=== PATIENT | female | born 1945 | race Caucasian/White ===

== ENCOUNTER 2018-03-29 14:15 | Inpatient (IN) | payer MEDICARE ==
[~2018-03-29] VITALS: Ht 162.6 cm; Wt 90.0 kg
[~2018-03-29 14:15] MED LIST: CARB1TAB21 PO; CELE-193 PO; ERGO500014 PO; GABA-534 PO; LISI-222 PO; MULT-1085 PO; NORCO10T PO; SIMV20TA5 PO; SYN0.025T PO; [UNRECOGNIZED DRUG - CODE] PO
[2018-03-29] MEDS ORDERED: aspirin 81mg tab.chew PO ONE (14:25)
[2018-03-29] MEDS ORDERED: nitroGLYCERIN 0.4mg SUBLingual tab SL PRN (14:25)
[2018-03-29 14:49] LABS: BASOPHILS # (AUTO) 0.1 X10'3 (0-0.2); BASOPHILS % (AUTO) 1.7 % (0-1); EOSINOPHILS # (AUTO) 0.4 X10'3 (0-0.9); EOSINOPHILS % (AUTO) 7.8 % (0-6); HEMATOCRIT 36.3 % (35.0-45.0); HEMOGLOBIN 12.2 g/dl (12.0-16.0); LYMPHOCYTES # (AUTO) 1.7 X10'3 (1.1-4.8); LYMPHOCYTES % (AUTO) 33.8 % (21-51); MEAN CORPUSCULAR HGB CONC 33.6 % (33.0-36.5); MEAN CORPUSCULAR VOLUME 89.1 FL (78-98); MEAN PLATELET VOLUME 7.6 FL (7.4-10.4); MONOCYTES # (AUTO) 0.8 X10'3 (0-0.9); MONOCYTES % (AUTO) 14.8 % (2-12); NEUTROPHILS # (AUTO) 2.1 X10'3 (1.8-7.7); NEUTROPHILS % (AUTO) 41.9 % (42-75); PLATELET COUNT 193 X10'3 (140-440); RED BLOOD COUNT 4.07 X10'6 (4.20-5.60); RED CELL DISTRIBUTION WIDTH 13.1 % (11.5-14.5); WHITE BLOOD COUNT 5.1 X10'3 (4.5-11.0)
[2018-03-29 14:53] LABS: PARTIAL THROMBOPLASTIN TIME 26 SECONDS (22-32)
[2018-03-29 15:00] LABS: ALANINE AMINOTRANSFERASE 11 U/L (12-78); ALBUMIN 3.5 G/DL (3.4-5.0); ALKALINE PHOSPHATASE 74 IU/L (46-116); ANION GAP 7 (8-16); ASPARTATE AMINO TRANSFERASE 20 U/L (10-37); BILIRUBIN,TOTAL 0.3 MG/DL (0.1-1.0); BLOOD UREA NITROGEN 35 MG/DL (7-18); BUN/CREATININE RATIO 23.8 (6.6-38.0); CALCIUM 8.8 MG/DL (8.5-10.1); CHLORIDE 104 MMOL/L (99-107); CREATININE 1.47 MG/DL (0.40-0.90); GLUCOSE 98 MG/DL (70-104); POTASSIUM 4.5 MMOL/L (3.5-5.1); SODIUM 135 MMOL/L (135-145); TOTAL CARBON DIOXIDE 23.7 MMOL/L (24-32); TOTAL PROTEIN 6.9 G/DL (6.4-8.2); eGFR 35 ML/MIN
[2018-03-29] MEDS ORDERED: heparin 10,000 units/1 ML INJ IV PRN (15:10)
[2018-03-29] MEDS ORDERED: heparin 10,000 units/1 ML INJ IV ONE (15:10)
[2018-03-29] MEDS ORDERED: ROPI0.252 PO (15:46)
[2018-03-29] MEDS ORDERED: nitroGLYCERIN 0.4mg/hour patch TD ONE (16:40)
[2018-03-29] MEDS ORDERED: acetaminophen 325mg tablet PO PRN (16:40)
[2018-03-29] MEDS ORDERED: mag hydrox/Alum hydrox/simeth 30ml oral suspension PO PRN (16:40)
[2018-03-29] MEDS ORDERED: magnesium hydroxide 30ml (MOM) UD suspension PO PRN (16:40)
[2018-03-29] MEDS ORDERED: ondansetron/PF 4mg/2ml inj IV PRN (16:40)
[2018-03-29] MEDS ORDERED: morphine 4 MG/ML inj SYRINge IV PRN (16:40)
[2018-03-29] MEDS: normal saline 1000ml 1,000 ML IV SCH (16:49)
[2018-03-29 17:20] VITALS: BP 162/64
[2018-03-29 17:58] LABS: HEMOGLOBIN A1C 6.3 % (4.5-6.2)
[2018-03-29] MEDS ORDERED: glucagon, human recombinant 1mg kit SUBCUT PRN (18:30)
[2018-03-29] MEDS ORDERED: dextrose ORAL solution 15 GM/59 ML bottle PO PRN ×2 (18:30)
[2018-03-29] MEDS ORDERED: insulin regular, human vial - multi-dose SQ SCH (18:30)
[2018-03-29] MEDS ORDERED: dextrose 50%-water 50ml dispensing syringe IV PRN ×2 (18:30)
[2018-03-29] MEDS ORDERED: MESSAGE TO PHARMACY PO ONE (18:30)
[2018-03-29] MEDS ORDERED: insulin Lispro (HumaLOG) vial - multi-dose SQ SCH (18:30)
[2018-03-29 19:00] VITALS: BP 120/75
[2018-03-29] MEDS: tirofiban 5mg in NS 100mL 100 ML IV SCH (19:04)
[2018-03-29] MEDS: ROPINIRole 0.25mg tablet PO SCH (20:25)
[2018-03-29] MEDS: carbidopa/levodopa 10/100mg tab PO SCH (20:25)
[2018-03-29] MEDS: insulin glargine (Lantus) pen - multi-dose SQ SCH (20:56)
[2018-03-29] MEDS ORDERED: ROPINIRole 0.25mg tablet PO SCH (21:00)
[2018-03-29 23:00] VITALS: BP 128/58
[2018-03-30] VITALS (14 sets, daily range): BP systolic 108–153; BP diastolic 40–66
[2018-03-30] MEDS: normal saline 1000ml 1,000 ML IV SCH ×3 (02:19→21:25)
[2018-03-30] MEDS: morphine 4 MG/ML inj SYRINge IV PRN ×2 (02:20→10:48)
[2018-03-30] MEDS: tirofiban 5mg in NS 100mL 100 ML IV SCH (02:20)
[2018-03-30 05:26] LABS: BASOPHILS % (AUTO) 0.5 % (0-1); EOSINOPHILS # (AUTO) 0.4 X10'3 (0-0.9); EOSINOPHILS % (AUTO) 8.4 % (0-6); HEMATOCRIT 33.1 % (35.0-45.0); HEMOGLOBIN 11.1 g/dl (12.0-16.0); LYMPHOCYTES # (AUTO) 1.6 X10'3 (1.1-4.8); LYMPHOCYTES % (AUTO) 31.6 % (21-51); MEAN CORPUSCULAR HEMOGLOBIN 30.3 PG (27.0-31.0); MEAN CORPUSCULAR HGB CONC 33.6 % (33.0-36.5); MEAN CORPUSCULAR VOLUME 90.1 FL (78-98); MEAN PLATELET VOLUME 8.1 FL (7.4-10.4); MONOCYTES # (AUTO) 0.6 X10'3 (0-0.9); MONOCYTES % (AUTO) 12.1 % (2-12); NEUTROPHILS # (AUTO) 2.6 X10'3 (1.8-7.7); NEUTROPHILS % (AUTO) 47.4 % (42-75); PLATELET COUNT 174 X10'3 (140-440); RED BLOOD COUNT 3.68 X10'6 (4.20-5.60); RED CELL DISTRIBUTION WIDTH 13.4 % (11.5-14.5); WHITE BLOOD COUNT 5.2 X10'3 (4.5-11.0)
[2018-03-30 05:48] LABS: ALBUMIN 3.1 G/DL (3.4-5.0); ANION GAP 10 (8-16); BLOOD UREA NITROGEN 26 MG/DL (7-18); BUN/CREATININE RATIO 22.2 (6.6-38.0); CALCIUM 8.5 MG/DL (8.5-10.1); CHLORIDE 107 MMOL/L (99-107); CREATININE 1.17 MG/DL (0.40-0.90); GLUCOSE 91 MG/DL (70-104); POTASSIUM 4.4 MMOL/L (3.5-5.1); SODIUM 139 MMOL/L (135-145); TOTAL CARBON DIOXIDE 22.3 MMOL/L (24-32); eGFR 45 ML/MIN
[2018-03-30] MEDS: atorvastatin 20mg tablet PO SCH (07:48)
[2018-03-30] MEDS: levoTHYROXINE 75mcg tablet PO SCH (07:48)
[2018-03-30] MEDS: aspirin 81mg tablet.DR PO SCH (07:49)
[2018-03-30] MEDS: lisinopril 20mg tablet PO SCH (07:49)
[2018-03-30] MEDS: gabapentin 400mg capsule PO SCH (07:49)
[2018-03-30] MEDS: carbidopa/levodopa 10/100mg tab PO SCH ×4 (07:49→21:23)
[2018-03-30] MEDS: ROPINIRole 0.25mg tablet PO SCH ×3 (07:49→21:23)
[2018-03-30] MEDS ORDERED: midazolam 2 mg/2 ml injection ONE (07:56)
[2018-03-30] MEDS ORDERED: iohexol 350MG/ML 100ml bottle IV ONE (07:56)
[2018-03-30] MEDS ORDERED: lidocaine 1%/epinephrine 1:100,000 injection 50ml vial ONE (07:56)
[2018-03-30] MEDS ORDERED: fentaNYL/PF 50MCG/1 ML 2ML syringe ONE (07:56)
[2018-03-30] MEDS: ETHINYL ESTRADIOL PO SCH (08:00)
[2018-03-30] MEDS: [UNRECOGNIZED DRUG - OTHER] PO SCH (08:00)
[2018-03-30 08:38] LABS: CHOL/HDL RATIO 4.7 (0.00-4.99); CHOLESTEROL 150 MG/DL (0-200); HDL CHOLESTEROL 32 MG/DL (35-60); LDL CHOLESTEROL 98 MG/DL (50-100); TRIGLYCERIDES 110 MG/DL (20-135)
[2018-03-30] MEDS ORDERED: proCHLORperazine 10 MG/2 ml inj IV PRN (10:25)
[2018-03-30] MEDS ORDERED: OXAZEpam 15mg capsule PO PRN (10:25)
[2018-03-30] MEDS: insulin glargine (Lantus) pen - multi-dose SQ SCH (21:00)
[2018-03-31 03:00] VITALS: BP 135/54
[2018-03-31 06:00] VITALS: BP 131/59
[2018-03-31] MEDS: aspirin 81mg tablet.DR PO SCH (07:11)
[2018-03-31] MEDS: carbidopa/levodopa 10/100mg tab PO SCH ×2 (07:11→12:50)
[2018-03-31] MEDS: atorvastatin 20mg tablet PO SCH (07:11)
[2018-03-31] MEDS: ROPINIRole 0.25mg tablet PO SCH ×2 (07:11→12:50)
[2018-03-31] MEDS: lisinopril 20mg tablet PO SCH (07:11)
[2018-03-31] MEDS: gabapentin 400mg capsule PO SCH (07:11)
[2018-03-31] MEDS: levoTHYROXINE 75mcg tablet PO SCH (07:11)
[2018-03-31 07:13] LABS: BASOPHILS % (AUTO) 0.7 % (0-1); EOSINOPHILS # (AUTO) 0.3 X10'3 (0-0.9); EOSINOPHILS % (AUTO) 4.7 % (0-6); HEMATOCRIT 31.7 % (35.0-45.0); HEMOGLOBIN 10.7 g/dl (12.0-16.0); LYMPHOCYTES # (AUTO) 1.2 X10'3 (1.1-4.8); LYMPHOCYTES % (AUTO) 19.6 % (21-51); MEAN CORPUSCULAR HEMOGLOBIN 30.2 PG (27.0-31.0); MEAN CORPUSCULAR HGB CONC 33.8 % (33.0-36.5); MEAN CORPUSCULAR VOLUME 89.2 FL (78-98); MEAN PLATELET VOLUME 8.6 FL (7.4-10.4); MONOCYTES # (AUTO) 0.6 X10'3 (0-0.9); MONOCYTES % (AUTO) 9.3 % (2-12); NEUTROPHILS # (AUTO) 4.2 X10'3 (1.8-7.7); NEUTROPHILS % (AUTO) 65.7 % (42-75); PLATELET COUNT 166 X10'3 (140-440); RED BLOOD COUNT 3.56 X10'6 (4.20-5.60); RED CELL DISTRIBUTION WIDTH 13.5 % (11.5-14.5); WHITE BLOOD COUNT 6.3 X10'3 (4.5-11.0)
[2018-03-31] MEDS: [UNRECOGNIZED DRUG - OTHER] PO SCH (07:13)
[2018-03-31] MEDS: ETHINYL ESTRADIOL PO SCH (07:13)
[2018-03-31 07:22] LABS: ALBUMIN 3.1 G/DL (3.4-5.0); ANION GAP 7 (8-16); BLOOD UREA NITROGEN 26 MG/DL (7-18); CALCIUM 8.5 MG/DL (8.5-10.1); CHLORIDE 106 MMOL/L (99-107); GLUCOSE 107 MG/DL (70-104); POTASSIUM 4.8 MMOL/L (3.5-5.1); SODIUM 136 MMOL/L (135-145); TOTAL CARBON DIOXIDE 23.1 MMOL/L (24-32); eGFR 40 ML/MIN
[2018-03-31] MEDS: normal saline 1000ml 1,000 ML IV SCH (08:36)
[2018-03-31 11:00] VITALS: BP 144/59
[2018-03-31] MEDS ORDERED: clopidogrel 75mg tablet PO SCH (11:30)
[2018-03-31 15:00] VITALS: BP 125/57
[2018-03-31] MEDS ORDERED: ASPI-1071 PO (15:37)
[2018-03-31] MEDS ORDERED: CLOP75TA35 PO (15:37)
== END 2018-03-31 17:15 | disposition home or self-care (01) | DRG 280 ==
LOC: ER 14:16 → ED HOLD 16:36 → PCU 3S 17:30
PROVIDERS: ADMIT Family Medicine; ATTEND Family Medicine
PROC: 4A023N7 Measurement of Cardiac Sampling and Pressure, Left Heart, Percutaneous Approach (ICD-10-PCS; principal; 2018-03-30)
PROC: B2111ZZ Fluoroscopy of Multiple Coronary Arteries using Low Osmolar Contrast (ICD-10-PCS; 2018-03-30)
PROC: B2151ZZ Fluoroscopy of Left Heart using Low Osmolar Contrast (ICD-10-PCS; 2018-03-30)
PROC: B2131ZZ Fluoroscopy of Multiple Coronary Artery Bypass Grafts using Low Osmolar Contrast (ICD-10-PCS; 2018-03-30)
PROC: CB121ZZ Planar Nuclear Medicine Imaging of Lungs and Bronchi using Technetium 99m (Tc-99m) (ICD-10-PCS; 2018-03-31)
DX: I21.4 Non-ST elevation (NSTEMI) myocardial infarction (principal); N17.0 Acute kidney failure with tubular necrosis; G25.81 Restless legs syndrome; I25.10 Atherosclerotic heart disease of native coronary artery without angina pectoris; I44.7 Left bundle-branch block, unspecified; N18.9 Chronic kidney disease, unspecified; G20 Parkinson's disease; F41.9 Anxiety disorder, unspecified; R00.1 Bradycardia, unspecified; E78.5 Hyperlipidemia, unspecified; I12.9 Hypertensive chronic kidney disease with stage 1 through stage 4 chronic kidney disease, or unspecified chronic kidney disease; E03.9 Hypothyroidism, unspecified; E11.22 Type 2 diabetes mellitus with diabetic chronic kidney disease; E11.42 Type 2 diabetes mellitus with diabetic polyneuropathy; E78.00 Pure hypercholesterolemia, unspecified; Z95.1 Presence of aortocoronary bypass graft; Z98.84 Bariatric surgery status; Z90.49 Acquired absence of other specified parts of digestive tract; Z79.02 Long term (current) use of antithrombotics/antiplatelets; Z79.82 Long term (current) use of aspirin; Z79.899 Other long term (current) drug therapy; Z82.49 Family history of ischemic heart disease and other diseases of the circulatory system; Z83.3 Family history of diabetes mellitus
CPT/HCPCS: 36415; 71045; 78582; 80048; 80053; 80061; 82948; 83036; 84484; 85025; 85610; 85730; 87070; 93005; 93306; 93459; 96374; 99152; 99291; A4315; A6257; A9539; A9540; C1769; J1644; J1815; J2250; J2270; J2405; J3010; J3246; J3490; J7030; Q9967

== ENCOUNTER 2019-11-04 23:17 | Emergency (ER) | payer MEDICARE ==
[~2019-11-04] VITALS: Ht 162.6 cm; Wt 93.1 kg
[~2019-11-04 23:17] MED LIST changes: +ASPI-1071 PO; -CELE-193 PO; +CLOP75TA35 PO; -ERGO500014 PO; -MULT-1085 PO; -NORCO10T PO; +ROPI0.252 PO; +SIMV-42 PO; -SIMV20TA5 PO
[2019-11-04] MEDS ORDERED: LOSA25TA41 PO (23:50)
--- NOTE | 2019-11-04 23:50 | NUR ---
DR. REYES AT [facility] Addendum: 11/04/19 at [address] REYES AT BEDSIDE ASSESSING PATIENT
[2019-11-05 00:18] VITALS: BP 158/79
== END 2019-11-05 00:20 | disposition home or self-care (01) ==
LOC: ER 23:18
DX: I10 Essential (primary) hypertension (principal); R42 Dizziness and giddiness; G20 Parkinson's disease; I25.10 Atherosclerotic heart disease of native coronary artery without angina pectoris; E78.00 Pure hypercholesterolemia, unspecified; Z95.1 Presence of aortocoronary bypass graft; Z76.0 Encounter for issue of repeat prescription; Z79.82 Long term (current) use of aspirin; Z79.899 Other long term (current) drug therapy
CPT/HCPCS: 99281

== ENCOUNTER 2020-03-01 17:38 | Inpatient (IN) | payer MEDICARE ==
[~2020-03-01] VITALS: Ht 162.6 cm; Wt 201.0 kg
[~2020-03-01 17:38] MED LIST changes: +LOSA25TA41 PO
[2020-03-01 18:20] LABS: BASOPHILS % (AUTO) 0.5 % (0-1); EOSINOPHILS # (AUTO) 0.2 X10'3 (0-0.9); EOSINOPHILS % (AUTO) 3.8 % (0-6); HEMATOCRIT 36.5 % (35.0-45.0); HEMOGLOBIN 11.9 g/dl (12.0-16.0); LYMPHOCYTES # (AUTO) 1.2 X10'3 (1.1-4.8); LYMPHOCYTES % (AUTO) 18.2 % (21-51); MEAN CORPUSCULAR HEMOGLOBIN 28.1 PG (27.0-31.0); MEAN CORPUSCULAR HGB CONC 32.4 g/dL (33.0-36.5); MEAN CORPUSCULAR VOLUME 86.7 FL (78-98); MEAN PLATELET VOLUME 7.5 FL (7.4-10.4); MONOCYTES # (AUTO) 0.8 X10'3 (0-0.9); NEUTROPHILS # (AUTO) 4.1 X10'3 (1.8-7.7); NEUTROPHILS % (AUTO) 64.5 % (42-75); PLATELET COUNT 219 X10'3 (140-440); RED BLOOD COUNT 4.22 X10'6 (4.20-5.60); RED CELL DISTRIBUTION WIDTH 16.6 % (11.5-14.5); WHITE BLOOD COUNT 6.4 X10'3 (4.5-11.0)
[2020-03-01 18:35] LABS: PARTIAL THROMBOPLASTIN TIME 28 SECONDS (22-32)
[2020-03-01 18:37] LABS: ALANINE AMINOTRANSFERASE 9 U/L (12-78); ALBUMIN 3.6 G/DL (3.4-5.0); ALKALINE PHOSPHATASE 117 IU/L (46-116); ANION GAP 8 (8-16); ASPARTATE AMINO TRANSFERASE 15 U/L (10-37); BILIRUBIN,TOTAL 0.3 MG/DL (0.1-1.0); BLOOD UREA NITROGEN 36 MG/DL (7-18); BUN/CREATININE RATIO 29.8 (6.6-38.0); CALCIUM 9.4 MG/DL (8.5-10.1); CHLORIDE 104 MMOL/L (99-107); CREATININE 1.21 MG/DL (0.40-0.90); GLUCOSE 89 MG/DL (70-104); POTASSIUM 4.6 MMOL/L (3.5-5.1); SODIUM 137 MMOL/L (135-145); TOTAL CARBON DIOXIDE 24.7 MMOL/L (24-32); TOTAL PROTEIN 7.3 G/DL (6.4-8.2); eGFR 43 ML/MIN
[2020-03-01 18:40] LABS: TROPONIN I < 0.04 NG/ML (0.0-0.05)
[2020-03-01] MEDS ORDERED: aspirin 81mg tab.chew PO ONE (18:50)
[2020-03-01] MEDS ORDERED: iohexol 350MG/ML 100ml bottle IV ONE (19:02)
[2020-03-01] MEDS ORDERED: ROPI0.5T4 PO (19:52)
[2020-03-01] MEDS ORDERED: ASPI-1053 PO (19:52)
[2020-03-01] MEDS ORDERED: ROTI1PAT10 TOP (19:52)
[2020-03-01] MEDS ORDERED: LOSA25TA41 PO (19:52)
[2020-03-01] MEDS ORDERED: PARO30TA73 PO (19:52)
[2020-03-01] MEDS ORDERED: GABA600T13 PO (19:52)
[2020-03-01] MEDS ORDERED: CLOP75TA33 PO (19:52)
[2020-03-01] MEDS ORDERED: DICL100G15 TOP (19:52)
[2020-03-01] MEDS ORDERED: LEVO100T9 PO (19:52)
[2020-03-01] MEDS ORDERED: CARB1TAB24 PO (19:52)
[2020-03-01] MEDS ORDERED: [UNRECOGNIZED DRUG - CODE] PO (19:52)
[2020-03-01] MEDS ORDERED: potassium CL 10mEq/100ml bag 100 ML IV PRN ×2 (20:00)
[2020-03-01] MEDS ORDERED: magnesium Cl slow-release 64mg tablet PO PRN (20:00)
[2020-03-01] MEDS ORDERED: potassium Cl 20 mEq SR tablet PO PRN ×2 (20:00)
[2020-03-01] MEDS: K and/or MAG REPLACEMENT MC SCH (20:00)
[2020-03-01] MEDS ORDERED: magnesium 2GM in 50ml NS 50 ML IV PRN (20:00)
[2020-03-01] MEDS ORDERED: ondansetron/PF 4mg/2ml inj IV PRN (20:00)
[2020-03-01] MEDS ORDERED: magnesium 4gm in 100ml NS 100 ML IV PRN (20:00)
--- NOTE | 2020-03-01 21:21 | NUR ---
Kevan Liao, Patient's son,
--- NOTE | 2020-03-01 21:25 | NUR ---
Patient in room ED 6. I have received report from Elsie MCKEON and had the opportunity to ask questions and assume patient care.
--- NOTE | 2020-03-01 21:30 | NUR ---
pt to the floor w/ Igor MCKEON
[2020-03-01 21:35] VITALS: BP 177/71
[2020-03-01] MEDS: docusate sod 100mg capsule PO SCH (21:49)
[2020-03-02] VITALS (7 sets, daily range): BP systolic 107–176; BP diastolic 45–76
--- NOTE | 2020-03-02 00:27 | NUR ---
promotional table spacer Page Sent promotional table spacer PAGER ID: [phone] MESSAGE: Pt in room 4021A, Yanni Kaleigh is requesting her night time meds of 1) Carbidopa/Levidopa 2) Gabapentin 3)Ropinirole HCL. Her tremors and restless leg are causing her to feel anxious
--- NOTE | 2020-03-02 00:28 | NUR ---
Spoke with son William who read RX of Carbidopa/Levidopa ER 20-200 tab HS
--- NOTE | 2020-03-02 06:16 | NUR ---
Problems reprioritized. Patient report given, questions answered & plan of care reviewed with Pepper MCKEON.
[2020-03-02] MEDS: clopidogrel 75mg tablet PO SCH (07:13)
[2020-03-02] MEDS: docusate sod 100mg capsule PO SCH ×2 (07:13→20:16)
[2020-03-02 07:16] LABS: BASOPHILS % (AUTO) 0.9 % (0-1); EOSINOPHILS # (AUTO) 0.3 X10'3 (0-0.9); EOSINOPHILS % (AUTO) 6.4 % (0-6); HEMOGLOBIN 12.1 g/dl (12.0-16.0); LYMPHOCYTES # (AUTO) 1.5 X10'3 (1.1-4.8); LYMPHOCYTES % (AUTO) 28.5 % (21-51); MEAN CORPUSCULAR HEMOGLOBIN 28.4 PG (27.0-31.0); MEAN CORPUSCULAR HGB CONC 32.8 g/dL (33.0-36.5); MEAN CORPUSCULAR VOLUME 86.7 FL (78-98); MEAN PLATELET VOLUME 7.7 FL (7.4-10.4); MONOCYTES # (AUTO) 0.7 X10'3 (0-0.9); MONOCYTES % (AUTO) 12.5 % (2-12); NEUTROPHILS # (AUTO) 2.8 X10'3 (1.8-7.7); NEUTROPHILS % (AUTO) 51.7 % (42-75); PLATELET COUNT 235 X10'3 (140-440); RED BLOOD COUNT 4.27 X10'6 (4.20-5.60); RED CELL DISTRIBUTION WIDTH 16.5 % (11.5-14.5); WHITE BLOOD COUNT 5.3 X10'3 (4.5-11.0)
[2020-03-02 07:36] LABS: ALBUMIN 3.8 G/DL (3.4-5.0); ANION GAP 11 (8-16); BLOOD UREA NITROGEN 32 MG/DL (7-18); BUN/CREATININE RATIO 27.4 (6.6-38.0); CALCIUM 9.2 MG/DL (8.5-10.1); CHLORIDE 105 MMOL/L (99-107); CHOL/HDL RATIO 4.3 (0.00-4.99); CHOLESTEROL 191 MG/DL (0-200); CREATININE 1.17 MG/DL (0.40-0.90); GLUCOSE 96 MG/DL (70-104); HDL CHOLESTEROL 44 MG/DL (35-60); LDL CHOLESTEROL 121 MG/DL (50-100); MAGNESIUM 2.2 MG/DL (1.5-2.4); POTASSIUM 4.5 MMOL/L (3.5-5.1); SODIUM 141 MMOL/L (135-145); TOTAL CARBON DIOXIDE 25.4 MMOL/L (24-32); TRIGLYCERIDES 133 MG/DL (20-135); eGFR 45 ML/MIN
[2020-03-02] MEDS: K and/or MAG REPLACEMENT MC SCH ×2 (08:00→20:00)
[2020-03-02] MEDS ORDERED: atorvastatin 20mg tablet PO SCH (08:00)
[2020-03-02] MEDS ORDERED: aspirin 81mg tablet.DR PO SCH (08:40)
[2020-03-02 09:55] LABS: HEMOGLOBIN A1C 6.6 % (4.5-6.2)
--- NOTE | 2020-03-02 10:03 | NUR ---
PAGER ID: [phone] MESSAGE: [id number] Yanni Farris- MRI results are back, also can you please complete patients med rec? Thank you Blanca [phone]
[2020-03-02] MEDS ORDERED: carbidoba-levodopa 25-100mg tablet PO SCH (13:00)
[2020-03-02] MEDS ORDERED: carbidopa/levodopa 10/100mg tab PO SCH (13:00)
[2020-03-02] MEDS ORDERED: CARB1TAB42 PO (13:33)
--- NOTE | 2020-03-02 13:38 | NUR ---
PAGER ID: [phone] MESSAGE: [id number] Yanni Fontanez- Neurologist number Dr. Owens [phone]. Also patient would like you to speak with her son Kevan [phone]. Blanca [phone]
[2020-03-02] MEDS: gabapentin 300mg capsule PO SCH ×2 (14:13→21:58)
[2020-03-02] MEDS: carbidoba-levodopa 25-100mg tablet PO SCH ×2 (14:13→17:02)
[2020-03-02] MEDS ORDERED: ROPINIRole 0.25mg tablet PO ONE (14:15)
--- NOTE | 2020-03-02 16:56 | NUR ---
Spoke with MD Matias, he is allowing for permissive hypertension.
--- NOTE | 2020-03-02 18:10 | NUR ---
Patient in room ORTHO 4021. I have received report from MIKE Rios and had the opportunity to ask questions and assume patient care.
--- NOTE | 2020-03-02 18:17 | NUR ---
Problems reprioritized. Patient report given, questions answered & plan of care reviewed with Vianey MCKEON.
--- NOTE | 2020-03-02 18:19 | NUR ---
Problems reprioritized. Patient report given, questions answered & plan of care reviewed with Rohini MCKEON.
[2020-03-02] MEDS: famotidine 10mg tablet PO SCH (20:16)
[2020-03-02] MEDS: ROPINIRole 0.25mg tablet PO SCH (20:16)
[2020-03-02] MEDS: carbidopa/levodopa 50/200mg CR tablet PO SCH (21:58)
[2020-03-03 02:00] VITALS: BP 134/58
[2020-03-03 06:00] VITALS: BP 122/66
[2020-03-03 06:15] LABS: BASOPHILS % (AUTO) 0.7 % (0-1); EOSINOPHILS # (AUTO) 0.3 X10'3 (0-0.9); EOSINOPHILS % (AUTO) 7.1 % (0-6); HEMATOCRIT 36.5 % (35.0-45.0); LYMPHOCYTES # (AUTO) 1.3 X10'3 (1.1-4.8); LYMPHOCYTES % (AUTO) 26.6 % (21-51); MEAN CORPUSCULAR HEMOGLOBIN 28.3 PG (27.0-31.0); MEAN CORPUSCULAR HGB CONC 32.9 g/dL (33.0-36.5); MEAN CORPUSCULAR VOLUME 86.2 FL (78-98); MEAN PLATELET VOLUME 7.9 FL (7.4-10.4); MONOCYTES # (AUTO) 0.7 X10'3 (0-0.9); MONOCYTES % (AUTO) 14.6 % (2-12); NEUTROPHILS # (AUTO) 2.5 X10'3 (1.8-7.7); PLATELET COUNT 215 X10'3 (140-440); RED BLOOD COUNT 4.24 X10'6 (4.20-5.60); RED CELL DISTRIBUTION WIDTH 16.1 % (11.5-14.5); WHITE BLOOD COUNT 4.9 X10'3 (4.5-11.0)
[2020-03-03 06:31] LABS: ALBUMIN 3.7 G/DL (3.4-5.0); ANION GAP 7 (8-16); BLOOD UREA NITROGEN 29 MG/DL (7-18); BUN/CREATININE RATIO 26.4 (6.6-38.0); CALCIUM 9.1 MG/DL (8.5-10.1); CHLORIDE 105 MMOL/L (99-107); GLUCOSE 97 MG/DL (70-104); MAGNESIUM 2.2 MG/DL (1.5-2.4); POTASSIUM 4.6 MMOL/L (3.5-5.1); SODIUM 138 MMOL/L (135-145); TOTAL CARBON DIOXIDE 26.3 MMOL/L (24-32); eGFR 48 ML/MIN
--- NOTE | 2020-03-03 06:35 | NUR ---
Problems reprioritized. Patient report given, questions answered & plan of care reviewed with MIKE Rios.
[2020-03-03] MEDS: carbidoba-levodopa 25-100mg tablet PO SCH ×3 (06:39→16:56)
[2020-03-03] MEDS: gabapentin 300mg capsule PO SCH ×2 (07:18→20:56)
[2020-03-03] MEDS: aspirin 81mg tab.chew PO SCH (07:18)
[2020-03-03] MEDS: docusate sod 100mg capsule PO SCH ×2 (07:18→20:56)
[2020-03-03] MEDS: ROPINIRole 0.25mg tablet PO SCH ×2 (07:19→20:57)
[2020-03-03] MEDS: atorvastatin 20mg tablet PO SCH (07:19)
[2020-03-03] MEDS: clopidogrel 75mg tablet PO SCH (07:19)
[2020-03-03] MEDS: famotidine 10mg tablet PO SCH ×2 (07:19→20:57)
[2020-03-03 08:00] VITALS: BP 129/61
[2020-03-03] MEDS: K and/or MAG REPLACEMENT MC SCH ×2 (08:00→19:31)
[2020-03-03] MEDS ORDERED: atorvastatin 20mg tablet PO SCH (08:00)
[2020-03-03] MEDS ORDERED: PARoxetine 20mg tablet PO SCH (08:00)
[2020-03-03] MEDS ORDERED: levoTHYROXINE 100mcg tablet PO SCH (08:00)
[2020-03-03] MEDS ORDERED: clopidogrel 75mg tablet PO SCH (08:00)
[2020-03-03 13:51] VITALS: BP 115/50
[2020-03-03] MEDS ORDERED: PARoxetine 10mg tablet PO SCH (14:17)
[2020-03-03 18:00] VITALS: BP 165/85
--- NOTE | 2020-03-03 18:10 | NUR ---
Patient in room ORTHO 4021. I have received report from MIKE Rios and had the opportunity to ask questions and assume patient care.
--- NOTE | 2020-03-03 18:17 | NUR ---
Problems reprioritized. Patient report given, questions answered & plan of care reviewed with Rohini MCKEON.
[2020-03-03] MEDS: carbidopa/levodopa 50/200mg CR tablet PO SCH (20:56)
[2020-03-03 22:00] VITALS: BP 140/56
[2020-03-04] MEDS: carbidoba-levodopa 25-100mg tablet PO SCH ×2 (05:40→11:19)
[2020-03-04 06:00] VITALS: BP 143/61
--- NOTE | 2020-03-04 06:00 | NUR ---
Problems reprioritized. Patient report given, questions answered & plan of care reviewed with MIKE Parks.
--- NOTE | 2020-03-04 06:00 | NUR ---
Patient in room ORTHO 4021. I have received report from Rohini and had the opportunity to ask questions and assume patient care.
[2020-03-04 06:29] LABS: BASOPHILS % (AUTO) 0.6 % (0-1); EOSINOPHILS # (AUTO) 0.4 X10'3 (0-0.9); EOSINOPHILS % (AUTO) 9.1 % (0-6); HEMATOCRIT 34.7 % (35.0-45.0); HEMOGLOBIN 11.3 g/dl (12.0-16.0); LYMPHOCYTES % (AUTO) 25.8 % (21-51); MEAN CORPUSCULAR HEMOGLOBIN 28.4 PG (27.0-31.0); MEAN CORPUSCULAR HGB CONC 32.6 g/dL (33.0-36.5); MEAN CORPUSCULAR VOLUME 87.2 FL (78-98); MEAN PLATELET VOLUME 7.6 FL (7.4-10.4); MONOCYTES # (AUTO) 0.7 X10'3 (0-0.9); MONOCYTES % (AUTO) 18.8 % (2-12); NEUTROPHILS # (AUTO) 1.8 X10'3 (1.8-7.7); NEUTROPHILS % (AUTO) 45.7 % (42-75); PLATELET COUNT 193 X10'3 (140-440); RED BLOOD COUNT 3.98 X10'6 (4.20-5.60); RED CELL DISTRIBUTION WIDTH 15.9 % (11.5-14.5); WHITE BLOOD COUNT 3.9 X10'3 (4.5-11.0)
[2020-03-04 06:44] LABS: ALBUMIN 3.4 G/DL (3.4-5.0); ANION GAP 10 (8-16); BLOOD UREA NITROGEN 25 MG/DL (7-18); BUN/CREATININE RATIO 21.6 (6.6-38.0); CALCIUM 8.9 MG/DL (8.5-10.1); CHLORIDE 104 MMOL/L (99-107); CREATININE 1.16 MG/DL (0.40-0.90); GLUCOSE 94 MG/DL (70-104); MAGNESIUM 2.1 MG/DL (1.5-2.4); POTASSIUM 4.6 MMOL/L (3.5-5.1); SODIUM 138 MMOL/L (135-145); TOTAL CARBON DIOXIDE 24.2 MMOL/L (24-32); eGFR 45 ML/MIN
[2020-03-04] MEDS: K and/or MAG REPLACEMENT MC SCH (07:35)
[2020-03-04] MEDS ORDERED: levoTHYROXINE 112mcg tablet PO SCH (08:00)
[2020-03-04] MEDS: clopidogrel 75mg tablet PO SCH (08:38)
[2020-03-04] MEDS: docusate sod 100mg capsule PO SCH (08:38)
[2020-03-04] MEDS: aspirin 81mg tab.chew PO SCH (08:38)
[2020-03-04] MEDS: gabapentin 300mg capsule PO SCH (08:38)
[2020-03-04] MEDS: ROPINIRole 0.25mg tablet PO SCH (08:38)
[2020-03-04] MEDS: atorvastatin 20mg tablet PO SCH (08:38)
[2020-03-04] MEDS: famotidine 10mg tablet PO SCH (08:38)
[2020-03-04 10:00] VITALS: BP 113/56
--- NOTE | 2020-03-04 13:45 | NUR ---
Called Kevan, pt's son regarding DC. No answer. Left message Addendum: 03/04/20 at 1351 by Kasey Pickard RN pt's son called back, will pick pt up within the hour
--- NOTE | 2020-03-04 14:40 | NUR ---
Reviewed discharge instructions with pt. Pt verbalized understanding. Pt dressed herself, all belongings were gathered and pt was wheeled downstairs to be driven home by her son.
[2020-03-04] MEDS ORDERED: SIMV-42 PO (15:42)
== END 2020-03-04 14:40 | disposition home health service (06) | DRG 66 ==
LOC: ER 17:38 → ED HOLD 19:58 → ORTHO 4S 21:40
PROVIDERS: ADMIT Internal Medicine; ATTEND Internal Medicine
DX: I63.532 Cerebral infarction due to unspecified occlusion or stenosis of left posterior cerebral artery (principal); E03.9 Hypothyroidism, unspecified; F32.9 Major depressive disorder, single episode, unspecified; G25.81 Restless legs syndrome; N18.9 Chronic kidney disease, unspecified; G20 Parkinson's disease; E78.5 Hyperlipidemia, unspecified; I12.9 Hypertensive chronic kidney disease with stage 1 through stage 4 chronic kidney disease, or unspecified chronic kidney disease; I25.10 Atherosclerotic heart disease of native coronary artery without angina pectoris; E78.00 Pure hypercholesterolemia, unspecified; Z79.899 Other long term (current) drug therapy; Z83.3 Family history of diabetes mellitus; Z95.1 Presence of aortocoronary bypass graft; I25.2 Old myocardial infarction
CPT/HCPCS: 36415; 70450; 70496; 70498; 70544; 70551; 71045; 80048; 80053; 80061; 82948; 83036; 83735; 84443; 84484; 85025; 85610; 85651; 85730; 87081; 92508; 92616; 93005; 93306; 97116; 97161; 97530; 99285; G0378; Q9967